=== PATIENT | male | born 1970 | race Caucasian/White ===

== ENCOUNTER → 2020-03-26 17:32 | Outpatient (CLI) | payer MEDICAID, SELFPAY ==
[2020-03-26 17:51] LABS: Basophils # 0.1 K/mm3 (0-0.2); Basophils % 0.9 % (0.1-2.0); Eosinophils # 0.1 K/mm3 (0.0-0.4); Eosinophils % 1.3 % (0.1-12.0); Hematocrit 47.8 % (42.0-52.0); Hemoglobin 16.1 g/dL (14.1-18.0); Lymphocytes # 2.5 K/mm3 (0.7-4.5); Lymphocytes % 26.1 % (10-50); Mean Corpuscular HGB Conc 33.6 g/dL (31.8-35.4); Mean Corpuscular Hemoglobin 34.6 pg (27.0-31.2); Mean Corpuscular Volume 102.8 fl (80-94); Mean Platelet Volume 10.1 fl (7.4-10.4); Monocytes # 0.8 K/mm3 (0.1-1.0); Monocytes % 8.2 % (1.7-9.3); Neutrophils # 6.1 K/mm3 (1.8-7.8); Neutrophils % 63.5 % (37.0-80.0); Platelet Count 216 K/mm3 (142-424); Red Blood Count 4.65 M/mm3 (4.60-6.20); Red Cell Distribution Width 13.8 % (11.5-17.5); White Blood Count 9.6 K/mm3 (4.8-10.8)
[2020-03-26 18:00] LABS: Alanine Aminotransferase 34 U/L (12-78); Albumin Level 4.9 g/dl (3.5-5.0); Albumin/Globulin Ratio 1.6 (1.1-1.8); Alkaline Phosphatase 93 U/L (38-126); Anion Gap 11.8 mEq/L (5-15); Aspartate Amino Transferase 35 U/L (17-59); Bilirubin,Total 0.4 mg/dl (0.2-1.3); Blood Urea Nitrogen 13 mg/dl (9-20); Calcium 9.8 mg/dl (8.4-10.2); Carbon Dioxide 26 mmol/L (22.0-30.0); Chloride 106 mmol/L (98-107); Chol/HDL Ratio 5.9 (1-3.5); Cholesterol 276 mg/dl (140-200); Estimated Glomerular Filt Rate 104 ml/min (>60); GFR (African American) 125 ML/MIN (>60); Globulin 3.1 g/dL (1.3-3.2); Glucose 105 mg/dl (74-100); HDL Cholesterol 47 mg/dl (40-60); Potassium 4.8 mmoL/L (3.5-5.1); Sodium 139 mmol/L (136-145)
[2020-03-26 18:11] LABS: Direct LDL Cholesterol 105.35 mg/dL (100-129)
[2020-03-26 18:14] LABS: Triglycerides 673 mg/dl (30-150)
[2020-03-26 18:16] LABS: Free T4 (Free Thyroxine) 1.05 ng/dl (0.78-2.19)
[2020-03-26 18:30] LABS: Thyroid Stimulating Hormone 0.84 uIU/mL (0.465-4.68)
[2020-03-26 19:35] LABS: 25-OH Vitamin D, Total < 12.8 ng/mL (30-100)
== END ==
PROVIDERS: Visit Provider Emergency Medicine
DX: R53.83 Other fatigue (principal); E55.9 Vitamin D deficiency, unspecified
CPT/HCPCS: 80053; 80061; 82306; 84439; 84443; 85025

== ENCOUNTER → 2020-05-04 12:53 | Outpatient (CLI) | payer MEDICAID, SELFPAY ==
[2020-05-04 14:04] LABS: Coronavirus 19 IgG Antibody Positive (Negative); Coronavirus 19 IgM Antibody Negative (Negative)
[2020-05-04 14:38] LABS: Vitamin B12 274 pg/mL (239-931)
[2020-05-04 14:42] LABS: Folate 6.19 ng/mL
== END ==
PROVIDERS: PCP Emergency Medicine; Visit Provider Internal Medicine Gastroenterology
DX: Z01.818 Encounter for other preprocedural examination (principal); Z20.822 Contact with and (suspected) exposure to COVID-19; Z13.810 Encounter for screening for upper gastrointestinal disorder; Z12.11 Encounter for screening for malignant neoplasm of colon; D64.9 Anemia, unspecified
CPT/HCPCS: 36415; 82607; 82746; 86328

== ENCOUNTER → 2020-05-07 07:54 | Outpatient (CLI) | payer MEDICAID, SELFPAY ==
--- NOTE | 2020-05-07 | CA_ITS ---
APPROVED REPORT Exam: Exercise Treadmill Technologist: Jaclyn Verdugo Ht: 5 ft 4 in Wt: 177 lbs BSA: 1.86 m2 HR: 113 bpm BP: 137/94 mmHg Indications: Chest pain, Heart murmur Medical History Medications: Gabapentin,,,,, Vitamin D3,,,,, Atorvastatin,,,,, Ropinirole,,,,, BuPROPION,,,,, Vitamin D2,,,,, Trazodone,,,,, ConAZEPAM,,,,, Stress Test Details Test: Jefferson HR Resting HR: 113 bpm Max Heart Rate (APMHR): 173.721594 bpm Max HR Achieved: 154 bpm Target HR (85% APMHR): 147.701240 bpm % of APMHR: 89.02 Recovery HR: 119 bpm BP Resting BP: 137/94 mmHg Max BP: 170/92 mmHg Recovery BP: 147.0/92.0 mmHg ECG Resting ECG: Sinus tachycardia, PVCs, ST-T abnormalities inferiorly Clinical Exercise duration: 06:00 min Highest Stage Achieved: Exercise capacity: 7.0 METs Stress ECG Conclusion Patient exercised 6:00 on Jefferson Protocol. Test stopped due to shortness of air, fatigue. Symptoms: No chest pain. Arrhythmias/Ectopy: Occasional PVC or fusion beat, rare ventricular couplet. ST-T Changes: No significant changes compared to baseline. Conclusion: Probably normal GXT with reduced sensitivity du eto baseline EKG abnormalities. Myoview images reported separately. Test Summary REST . . . . . . . Sitting REST . . . . . . . Standing REST 12:57 0.0 0.0 118 . 137/ 94 . . Stage 1 01:00 10.0 1.7 127 . . . . Stage 1 02:00 10.0 1.7 137 . . . . Stage 1 03:00 10.0 1.7 144 . 152/ 90 . . Stage 2 01:00 12.0 2.5 149 . . . . Stage 2 . . . . . . . Shortness of Breath Stage 2 . . . . . . . Myoview Injected Stage 2 02:00 12.0 2.5 154 . . . . Stage 2 03:00 12.0 2.5 152 . . . Stop exercise at 06:00 RECOVERY 01:00 0.0 0.0 142 . 170/ 92 . . RECOVERY 02:00 0.0 0.0 129 . 170/ 92 . . RECOVERY 03:00 0.0 0.0 128 . 161/ 98 . . RECOVERY 04:00 0.0 0.0 123 . 161/ 98 . . RECOVERY 05:00 0.0 0.0 119 . 147/ 92 . . RECOVERY 05:18 0.0 0.0 120 . 147/ 92 . . Electronically signed by : Sanya Uribe, 05/07/2020 20:28:16
--- NOTE | 2020-05-07 07:54 | US_ITS ---
PROCEDURE: US GALLBLADDER CLINICAL INDICATION: abdominal pain COMPARISON: No exams were available for comparison FINDINGS: Pancreas: There is a cystic structure in the region of the tail the pancreas which measures 7 cm. Pancreatic pseudocyst is a consideration. Liver: Unremarkable. There is appropriate direction of blood flow within a non dilated portal vein. Right kidney: Unremarkable appearing. No hydronephrosis. Gallbladder: No stones are evident. There is no gallbladder wall thickening. Common duct is normal in diameter. There is a small amount sludge within the gallbladder. IMPRESSION: 1. 7 cm cyst in the region the pancreatic tail. Suggest CT of the pancreas without and with contrast with pancreatic protocol for further evaluation. 2. Minimal amount of gallbladder sludge. Questionable clinical significance. No stones apparent Dictated by: Vahid Helton MD 05/07/2020 08:45 Vahid Helton MD in [facility] 05/07/2020 08:45
--- NOTE | 2020-05-07 07:54 | NM_ITS ---
APPROVED REPORT Exam: Nuclear Stress Test Indication: Chest pain, SOB, HTN, High cholesterol, Family history Patient Location: Outpatient Stress Tech: Jaclyn Verdugo HI Tech:Kacie Rinaldi, ARRT, RT (R)(N) Ht: 5 ft 3 in Wt: 175 lbs HR: 113 bpm BP: 137/94 mmHg BSA: 1.83 m2 BMI: 30.9 History: Chest pain, SOB, HTN, High cholesterol, Family history Procedure: Patient exercised on Jefferson protocol 6:00 minutes and sec, resting heart rate 113 bpm, resting blood pressure 137/94 mmHg, with exercise maximum heart rate achived was 154 bpm which is 89 % of the maximum predicted heart rate and blood pressure was 170/92 mmHg. Test was stopped due to SOA and leg fatigue. Patient denied any complaint of chest pain. Patient has Adequate exercise capacity, achieved 7.0 METs of workload on treadmill, the blood pressure response to exercise was Adequate. Electrocardiogram Resting electrocardiogram shows sinus rhythm nonspecific ST-T changes, with exercise there is additional millimeter ST segment depression noted from the baseline EKG. The EKG portion of the exercise Myoview is nondiagnostic due to baseline abnormal EKG. Cardiac Stress and Resting SPECT Images: Cardiac Stress and Resting SPECT images were obtained using technetium 99m Myoview 31.9 mCi stress and 10.17 mCi at rest. Gated SPECT for analysis of segmental wall motion and calculation of the ejection fraction also done, prone images were also obtained. Cardiac stress and rest SPECT images show uniform myocardial activity without segmental perfusion abnormality, however computer derived ejection fraction is 43% with no regional wall motion abnormality, visually estimated ejection fraction is approximately 50%. Right ventricle is normal size and contractility. Conclusion: 1. The EKG portion of the exercise Myoview is nondiagnostic due to baseline abnormal EKG, patient has adequate exercise capacity achieved 7 mets of workload on treadmill, the blood pressure response to exercise was adequate, there was no exercise-induced chest discomfort 2. No scintigraphic evidence of reversible ischemia seen, computer derived ejection fraction is 43%, however visually estimated ejection fraction 50%. There is no regional wall motion abnormality, right ventricle is normal size and contractility. 3. Likely normal exercise Myoview study. Electronically signed by : Sanya Uribe, 05/07/2020 20:34:56
--- NOTE | 2020-05-07 08:54 | CA_ITS ---
APPROVED REPORT EXAM: Comprehensive 2D, Doppler, and color-flow Echocardiogram [employer] Laborer: Jamila Pretty RVT Ht: 5 ft 4 in Wt: 177lbs BSA: 1.86 BP: 128/74 mmHg Indications: CP,MURMUR,FORMER SUBSTANCE USER,GERD 2D Dimensions LVOT 1.99 cm (M/F) 1.5-2.5 LA Volume 21.90 mL LA Volume Index 11.83 mL/m2 (M/F) 16-34 M-Mode Dimensions RVDd 2.24 cm (0.9-2.6) LA Diam 3.28 cm (1.9-4.0) LVDd 4.83 cm (3.5-5.7) Ao Diam 3.47 cm (2.0-3.7) LVDs 3.31 cm (3.5-5.7) IVSd 0.84 cm (0.6-1.1) PWd 0.49 cm (0.6-1.1) EF (Teich) 59.20% FS 31.50% EDV (Teich) 109.10 mL ESV (Teich) 44.50 mL LV Diastology MED E' 13.50 (< 7 cm/sec) LAT E' 12.80 (<10 cm/sec) Pulmonary Valve PV Peak Velocity 98.00 (50-150 cm/s) Left Ventricle Left atrium is normal size, left ventricle is normal size, left ventricle wall thickness is upper limit of normal, visually estimated ejection fraction 50% with no regional wall motion abnormality, diastolic parameters are inconclusive. Right Ventricle Right atrium and right ventricle are normal size and contractility. Aortic Valve Aortic valve is minimally thickened and fibrosed, there is no aortic stenosis or aortic insufficiency. Mitral Valve Mitral valve leaflets are minimally thickened, there is no mitral stenosis. There is mild mitral regurgitation. Tricuspid Valve Tricuspid grossly normal, there is trace tricuspid regurgitation. Pulmonic Valve Pulmonic valve is poorly visualized. Great Vessels Aortic root is normal size. Pericardium No significant pericardial effusion noted. Conclusion 1. Normal left ventricular size, preserved left ventricular systolic function, visually estimated ejection fraction 50% with no regional wall motion abnormality, diastolic parameters are inconclusive. 2. Mild mitral and trace tricuspid regurgitation. 3. No significant pericardial effusion noted. Electronically signed by : Sanya Uribe, 05/07/2020 20:06:50
--- NOTE | 2020-05-07 09:41 | HMH.ITSHM ---
Current Home Medications as stated by this patient Lela Roy or loss prevention representative. []CLONAZEPAM BUPROPION TRAZODONE ROPINIROLE LORATADINE GABAPENTIN VITAMIN D2 VITAMIND3 ATORVASTATIN
== END ==
PROVIDERS: PCP Emergency Medicine; Visit Provider Emergency Medicine
DX: R07.9 Chest pain, unspecified (principal); R01.1 Cardiac murmur, unspecified; R10.9 Unspecified abdominal pain
CPT/HCPCS: 76705; 78452; 93017; 93306; A9502

== ENCOUNTER → 2020-11-04 14:39 | Outpatient (CLI) | payer MEDICAID, SELFPAY | PROVIDERS: PCP Emergency Medicine; Visit Provider Nurse Practitioner | DX: Z20.822 Contact with and (suspected) exposure to COVID-19 (principal); U07.1 COVID-19 | CPT/HCPCS: C9803; U0003; U0005 ==

== ENCOUNTER → 2021-02-19 13:56 | Outpatient (CLI) | payer MEDICAID, SELFPAY | PROVIDERS: Visit Provider Nurse Practitioner Family | DX: R39.198 Other difficulties with micturition (principal) | CPT/HCPCS: 87086 ==

== ENCOUNTER → 2021-03-18 12:23 | Outpatient (CLI) | payer MEDICAID, SELFPAY ==
[2021-03-19 06:14] LABS: Covid-19 Nasal PCR Sendout Lex NOT DETECTED
== END ==
PROVIDERS: PCP Emergency Medicine; Visit Provider Nurse Practitioner
DX: Z20.822 Contact with and (suspected) exposure to COVID-19 (principal)
CPT/HCPCS: C9803; U0004; U0005

== ENCOUNTER → 2021-05-13 16:00 | Outpatient (CLI) | payer MEDICAID, SELFPAY ==
[2021-05-13 17:49] LABS: Alanine Aminotransferase 51 U/L (12-78); Albumin Level 4.7 g/dl (3.5-5.0); Alkaline Phosphatase 66 U/L (38-126); Anion Gap 10.8 mEq/L (5-15); Aspartate Amino Transferase 40 U/L (17-59); Bilirubin,Total 0.3 mg/dl (0.2-1.3); Blood Urea Nitrogen 9 mg/dl (9-20); Calcium 9.4 mg/dl (8.4-10.2); Carbon Dioxide 27 mmol/L (22.0-30.0); Chloride 104 mmol/L (98-107); Chol/HDL Ratio 3.9 (1-3.5); Cholesterol 158 mg/dl (140-200); Estimated Glomerular Filt Rate 103 ml/min (>60); GFR (African American) 125 ML/MIN (>60); Globulin 2.3 g/dL (1.3-3.2); Glucose 90 mg/dl (74-100); HDL Cholesterol 41 mg/dl (40-60); Magnesium 1.9 mg/dl (1.6-2.3); Potassium 4.8 mmoL/L (3.5-5.1); Sodium 137 mmol/L (136-145); Triglycerides 238 mg/dl (30-150); VLDL Cholesterol 48 mg/dL (0-40)
[2021-05-13 17:50] LABS: Basophils # 0.2 K/mm3 (0-0.2); Basophils % 2.1 % (0.1-2.0); Eosinophils # 0.2 K/mm3 (0.0-0.4); Eosinophils % 2.2 % (0.1-12.0); Hematocrit 48.1 % (42.0-52.0); Hemoglobin 16.1 g/dL (14.1-18.0); Iron 123 ug/dL (49-181); Lymphocytes # 2.6 K/mm3 (0.7-4.5); Lymphocytes % 24.8 % (10-50); Mean Corpuscular HGB Conc 33.5 g/dL (31.8-35.4); Mean Corpuscular Hemoglobin 33.9 pg (27.0-31.2); Mean Corpuscular Volume 101.1 fl (80-94); Mean Platelet Volume 9.8 fl (7.4-10.4); Monocytes # 0.8 K/mm3 (0.1-1.0); Monocytes % 7.5 % (1.7-9.3); Neutrophils # 6.6 K/mm3 (1.8-7.8); Neutrophils % 63.4 % (37.0-80.0); Platelet Count 322 K/mm3 (142-424); Red Blood Count 4.76 M/mm3 (4.60-6.20); Red Cell Distribution Width 14.5 % (11.5-17.5); White Blood Count 10.3 K/mm3 (4.8-10.8)
[2021-05-13 17:59] LABS: Total Iron Binding Capacity 344 ug/dL (261-462)
[2021-05-13 18:00] LABS: Direct LDL Cholesterol 73.86 mg/dL (100-129)
[2021-05-13 18:06] LABS: 25-OH Vitamin D, Total 25.3 ng/mL (30-100)
[2021-05-13 18:20] LABS: Prostate Specific Ag Screen 0.4 ng/ml (0.0-4.0); Thyroid Stimulating Hormone 1.75 uIU/mL (0.465-4.68)
[2021-05-13 18:27] LABS: Ferritin 109 ng/ml (17.9-464)
== END ==
PROVIDERS: Visit Provider Physician Assistant
DX: R60.0 Localized edema (principal); E55.9 Vitamin D deficiency, unspecified; Z12.5 Encounter for screening for malignant neoplasm of prostate
CPT/HCPCS: 80053; 80061; 82306; 82728; 83540; 83550; 83735; 84443; 85025; G0103

== ENCOUNTER → 2022-06-08 23:07 | Outpatient (CLI) | payer MEDICAID, SELFPAY ==
[2022-06-08 18:45] LABS: Basophils # 0.1 K/mm3 (0-0.2); Basophils % 0.5 % (0.1-2.0); Eosinophils # 0.1 K/mm3 (0.0-0.4); Eosinophils % 1.2 % (0.1-12.0); Hematocrit 48.7 % (42.0-52.0); Hemoglobin 16.1 g/dL (14.1-18.0); Lymphocytes % 17.7 % (10-50); Mean Corpuscular HGB Conc 33.1 g/dL (31.8-35.4); Mean Corpuscular Hemoglobin 33.4 pg (27.0-31.2); Mean Corpuscular Volume 100.9 fl (80-94); Mean Platelet Volume 9.5 fl (7.4-10.4); Monocytes % 8.5 % (1.7-9.3); Neutrophils # 8.1 K/mm3 (1.8-7.8); Platelet Count 238 K/mm3 (142-424); Red Blood Count 4.83 M/mm3 (4.60-6.20); Red Cell Distribution Width 14.1 % (11.5-17.5); White Blood Count 11.3 K/mm3 (4.8-10.8)
[2022-06-08 19:15] LABS: Alanine Aminotransferase 56 U/L (12-78); Albumin Level 4.4 g/dl (3.5-5.0); Albumin/Globulin Ratio 1.6 (1.1-1.8); Alkaline Phosphatase 75 U/L (38-126); Anion Gap 11.4 mEq/L (5-15); Aspartate Amino Transferase 48 U/L (17-59); Bilirubin,Total 0.4 mg/dl (0.2-1.3); Blood Urea Nitrogen 14 mg/dl (9-20); Calcium 9.1 mg/dl (8.4-10.2); Carbon Dioxide 24 mmol/L (22.0-30.0); Chloride 105 mmol/L (98-107); Chol/HDL Ratio 3.6 (1-3.5); Cholesterol 180 mg/dl (140-200); Estimated Glomerular Filt Rate 89 ml/min (>60); GFR (African American) 108 ML/MIN (>60); Globulin 2.8 g/dL (1.3-3.2); Glucose 112 mg/dl (74-100); HDL Cholesterol 50 mg/dl (40-60); Potassium 4.4 mmoL/L (3.5-5.1); Sodium 136 mmol/L (136-145); Total Protein,Serum 7.2 g/dl (6.3-8.2)
[2022-06-08 19:16] LABS: Triglycerides > 525 mg/dl (30-150)
[2022-06-08 19:29] LABS: 25-OH Vitamin D, Total 30.6 ng/mL (30-100)
[2022-06-08 19:45] LABS: Prostate Specific Ag Screen 0.3 ng/ml (0.0-4.0)
[2022-06-08 20:06] LABS: Direct LDL Cholesterol 61.99 mg/dL (100-129)
== END ==
PROVIDERS: PCP Emergency Medicine; Visit Provider Emergency Medicine
DX: Z00.00 Encounter for general adult medical examination without abnormal findings (principal); Z79.899 Other long term (current) drug therapy; Z12.5 Encounter for screening for malignant neoplasm of prostate; E66.9 Obesity, unspecified; Z68.37 Body mass index [BMI] 37.0-37.9, adult
CPT/HCPCS: 80053; 80061; 82306; 84443; 85025; G0103

== ENCOUNTER 2023-04-07 18:44 | Outpatient (CLI) | payer MEDICAID, SELFPAY | END 2023-04-07 23:59 | LOC: LAB.DROPOF 18:46 | PROVIDERS: PCP Nurse Practitioner Family; Visit Provider Nurse Practitioner Family | DX: R05.9 Cough, unspecified (principal); U07.1 COVID-19 | CPT/HCPCS: 87635 ==

== ENCOUNTER 2023-05-05 18:26 | Outpatient (CLI) | payer MEDICAID, SELFPAY ==
[2023-05-05 18:27] LABS: Basophils # 0.2 K/mm3 (0-0.2); Basophils % 1.2 % (0.1-2.0); Eosinophils # 0.2 K/mm3 (0.0-0.4); Hematocrit 47.6 % (42.0-52.0); Hemoglobin 15.8 g/dL (14.1-18.0); Lymphocytes # 2.4 K/mm3 (0.7-4.5); Lymphocytes % 19.5 % (10-50); Mean Corpuscular HGB Conc 33.2 g/dL (31.8-35.4); Mean Corpuscular Hemoglobin 34.8 pg (27.0-31.2); Mean Corpuscular Volume 104.7 fl (80-94); Mean Platelet Volume 9.2 fl (7.4-10.4); Monocytes # 1.1 K/mm3 (0.1-1.0); Monocytes % 8.8 % (1.7-9.3); Neutrophils # 8.3 K/mm3 (1.8-7.8); Neutrophils % 68.4 % (37.0-80.0); Platelet Count 248 K/mm3 (142-424); Red Blood Count 4.55 M/mm3 (4.60-6.20); White Blood Count 12.1 K/mm3 (4.8-10.8)
[2023-05-05 19:03] LABS: Chloride 104 mmol/L (98-107); Sodium 138 mmol/L (136-145)
[2023-05-05 19:05] LABS: Alanine Aminotransferase 58 U/L (12-78); Alkaline Phosphatase 82 U/L (38-126); Aspartate Amino Transferase 57 U/L (17-59); Bilirubin,Total 0.3 mg/dl (0.2-1.3); Blood Urea Nitrogen 12 mg/dl (9-20); Estimated Glomerular Filt Rate 79 ml/min (>60); GFR (African American) 96 ML/MIN (>60)
[2023-05-05 19:06] LABS: Albumin Level 4.4 g/dl (3.5-5.0); Albumin/Globulin Ratio 1.7 (1.1-1.8); Calcium 9.6 mg/dl (8.4-10.2); Carbon Dioxide 28 mmol/L (22.0-30.0); Chol/HDL Ratio 3.3 (1-3.5); Cholesterol 150 mg/dl (140-200); Globulin 2.6 g/dL (1.3-3.2); Glucose 96 mg/dl (74-100); HDL Cholesterol 46 mg/dl (40-60); Triglycerides 324 mg/dl (30-150); VLDL Cholesterol 65 mg/dL (0-40)
[2023-05-05 19:37] LABS: Thyroid Stimulating Hormone 3.14 uIU/mL (0.465-4.68)
== END 2023-05-05 23:59 ==
LOC: LAB.DROPOF 18:27
PROVIDERS: PCP Nurse Practitioner Family; Visit Provider Nurse Practitioner Family
DX: E66.9 Obesity, unspecified (principal); Z79.899 Other long term (current) drug therapy; Z68.36 Body mass index [BMI] 36.0-36.9, adult
CPT/HCPCS: 80053; 80061; 82306; 84443; 85025

== ENCOUNTER 2024-05-10 15:25 | Outpatient (CLI) | payer MEDICAID, SELFPAY ==
[2024-05-10 18:46] LABS: Basophils # 0.1 K/mm3 (0-0.2); Basophils % 0.6 % (0.1-2.0); Eosinophils # 0.2 K/mm3 (0.0-0.4); Eosinophils % 1.5 % (0.1-12.0); Hematocrit 44.2 % (42.0-52.0); Hemoglobin 15.5 g/dL (14.1-18.0); Lymphocytes # 2.4 K/mm3 (0.7-4.5); Lymphocytes % 18.2 % (10-50); Mean Corpuscular HGB Conc 35.1 g/dL (31.8-35.4); Mean Corpuscular Hemoglobin 33.6 pg (27.0-31.2); Mean Corpuscular Volume 95.9 fl (80-94); Mean Platelet Volume 11.4 fl (7.4-10.4); Monocytes % 7.7 % (1.7-9.3); Neutrophils # 9.3 K/mm3 (1.8-7.8); Neutrophils % 71.6 % (37.0-80.0); Platelet Count 278 K/mm3 (142-424); Red Blood Count 4.61 M/mm3 (4.60-6.20); Red Cell Distribution Width 13.1 % (11.5-17.5)
[2024-05-10 20:30] LABS: Alanine Aminotransferase 57 U/L (12-78); Albumin Level 4.6 g/dl (3.5-5.0); Alkaline Phosphatase 69 U/L (38-126); Anion Gap 15.1 mEq/L (5-15); Aspartate Amino Transferase 44 U/L (17-59); Bilirubin,Total 0.4 mg/dl (0.2-1.3); Blood Urea Nitrogen 11 mg/dl (9-20); Carbon Dioxide 29 mmol/L (22.0-30.0); Chloride 98 mmol/L (98-107); Chol/HDL Ratio 3.8 (1-3.5); Cholesterol 145 mg/dl (140-200); Estimated Glomerular Filt Rate 89 ml/min (>60); GFR (African American) 108 ML/MIN (>60); Globulin 2.3 g/dL (1.3-3.2); Glucose 131 mg/dl (74-100); HDL Cholesterol 38 mg/dl (40-60); Potassium 4.1 mmoL/L (3.5-5.1); Sodium 138 mmol/L (136-145); Total Protein,Serum 6.9 g/dl (6.3-8.2); Triglycerides 278 mg/dl (30-150); VLDL Cholesterol 56 mg/dL (0-40)
[2024-05-10 20:41] LABS: Direct LDL Cholesterol 59.44 mg/dL (100-129)
[2024-05-10 20:54] LABS: 25-OH Vitamin D, Total 51.2 ng/mL (30-100)
[2024-05-10 21:04] LABS: Thyroid Stimulating Hormone 0.96 uIU/mL (0.465-4.68)
== END 2024-05-10 23:59 | disposition home or self-care (01) ==
LOC: LAB.DROPOF 05-11 12:49
PROVIDERS: PCP Nurse Practitioner Family; Visit Provider Nurse Practitioner Family
DX: I10 Essential (primary) hypertension (principal); E66.9 Obesity, unspecified; Z68.38 Body mass index [BMI] 38.0-38.9, adult; N52.9 Male erectile dysfunction, unspecified; F41.9 Anxiety disorder, unspecified; F32.A Depression, unspecified; K21.9 Gastro-esophageal reflux disease without esophagitis
CPT/HCPCS: 80053; 80061; 82306; 84443; 85025